=== PATIENT | female | born 1955 | race Caucasian/White ===

== ENCOUNTER 2016-06-13 01:47 | Emergency (ER) | payer OTHER ==
[~2016-06-13] VITALS: Ht 165.1 cm; Wt 77.1 kg
[~2016-06-13 01:47] MED LIST: ALBUTEROL0.09 MG/A1 INH; ALBUTEROL2.5 MG/3 M INH/SOL; AUGMENTIN 875 M1 TAB PO; Nebulizer machine; PREDNISONE20 M1 PO; PREDNISONE50 MG PO
--- NOTE | 2016-06-13 01:54 | ED DYSPNEA/ASTHMA COMPLAINT ---
History of Present Illness General Chief Complaint: Dyspnea (COPD, CHF, Other) Stated Complaint: DIFF BREATHING Source: patient Exam Limitations: no limitations Vital Signs & Intake/Output Vital Signs & Intake/Output Vital Signs Date Time Temp Pulse Resp B/P Pulse O2 O2 Flow FiO2 Ox Delivery Rate 06/13 0326 97.6 103 20 150/74 97 Room Air 06/13 0155 97.4 114 24 180/90 97 Room Air Allergies Coded Allergies: NO KNOWN ALLERGIES (04/17/15) Reconcile Medications Albuterol Sulfate 2.5 MG/3 ML VIAL.NEB 1 Vial INH/JUDY Q4P PRN wheezing Albuterol Sulfate 1.25 MG/3 ML VIAL.NEB 1 Vial INH/JUDY Q4-6 PRN WHEEZE Albuterol Sulfate (Ventolin Hfa) 90 MCG HFA.AER.AD 2 PUF INH Q4-6 PRN PRN WHEEZE AMOXICILLIN/POTASSIUM CLAV (Augmentin 875-125 Tablet) 875 MG/125 MG TAB 1 TAB PO BID BRONCHITIS Methylprednisolone. (Medrol) 4 MG TAB.DS.PK 1 DP PO AD WHEEZING/BRONCHITIS 6 on day 1 then reduce by one tablet daily until gone [Nebulizer machine] Prednisone 50 MG TAB 1 TAB PO QDAY ASTHMATIC BRONCHITIS Prednisone 20 MG TABLET 1 TAB PO BID wheezing Promethazine HCl/Codeine (Promethazine-Codeine Syrup) 6.25 MG-10 MG/5 ML SYRUP 5-10 ML PO Q4-6 PRN COUGH [id number] CC'S... [id number] Triage Nurses Notes Reviewed? yes Onset: Gradual Duration: day(s):, waxing and waning Timing: recent history Severity: moderate Activities at Onset: none Prior Episodes/Possible Cause: occasional episodes Associated Symptoms: cough, wheezing HPI: 61 yo woman presents with cough, productive of phlegm, wheezing for the past several days. She was seen previously at an urgent care center, was started on augmentin, had a cxr which was reportedly negative. She presnets stating that she continues to have cough and wheezing, and now slightly productive of sputum. She is otherwise well. Past History Travel History Traveled to [place] past 21 day No Medical History Any Pertinent Medical History? see below for history Neurological: NONE EENT: NONE Cardiovascular: hypertension Respiratory: NONE Gastrointestinal: NONE Hepatic: NONE Renal: NONE Musculoskeletal: NONE Psychiatric: NONE Endocrine: diabetes Blood Disorders: NONE Cancer(s): leukemia RELIGIOUS EDUCATION TEACHER/Reproductive: NONE Surgical History Surgical History: N Psychosocial History What is your primary language Arabic Family History Hx Contributory? No Review of Systems Review of Systems Constitutional: Reports: no symptoms. EENTM: Reports: no symptoms. Respiratory: Reports: no symptoms. Cardiovascular: Reports: no symptoms. GI: Reports: no symptoms. Genitourinary: Reports: no symptoms. Musculoskeletal: Reports: no symptoms. Skin: Reports: no symptoms. Neurological/Psychological: Reports: no symptoms. Hematologic/Endocrine: Reports: no symptoms. Immunologic/Allergic: Reports: no symptoms. All Other Systems: Reviewed and Negative Physical Exam Physical Exam General Appearance: well developed/nourished, mild distress Head: atraumatic, normal appearance Eyes: Bilateral: normal appearance. Ears, Nose, Throat: normal pharynx, normal ENT inspection Neck: normal inspection, supple, full range of motion Respiratory: rhonchi, wheezing Cardiovascular: regular rate/rhythm Gastrointestinal: normal bowel sounds, soft, non-tender, no organomegaly Extremities: normal inspection, normal capillary refill Neurologic/Psych: no motor/sensory deficits, awake, alert, oriented x 3 Skin: intact, normal color, warm/dry Core Measures ACS in differential dx? No Severe Sepsis Present: No Septic Shock Present: No Progress Differential Diagnosis: asthma, AMI, bronchitis, CHF, COPD, pneumonia Plan of Care: duo neb, steroids given... Diagnostic Imaging: Viewed by Me: Radiology Read. Discussed w/RAD: Radiology Read. CXR Impression: bronchial wall thickening. Initial ED EKG: none Comments: PATIENT: HIEN SANTOS PRESENT AGE: 61 PATIENT ACCOUNT NO: [id number] : 54 LOCATION: [facility] ORDERING PHYSICIAN: SAKINA CISSE MD SERVICE DATE: 06/09/16 EXAM TYPE: RAD - X[facility]-CHEST XRAY, PA AND LATERAL EXAMINATION: XR CHEST CLINICAL INFORMATION: Cough. Shortness of breath. COMPARISON: 12/30/2015 TECHNIQUE: 2 views of the chest were obtained. FINDINGS: The lungs are well expanded. Bronchial wall thickening noted. There is no focal consolidation, edema, or effusion. No pneumothorax. The cardiomediastinal silhouette is within normal limits. No acute osseous abnormality. IMPRESSION: No dense consolidation. Bronchial wall thickening can be seen with a small airways process such as asthma or atypical/viral infection. DICTATED BY: ADAM HUDDLESTON MD DATE/TIME DICTATED:06/10/161428 COMPLIANCE INTERN:JOSE J DATE/TIME TRANSCRIBED:06/10/161428 CONFIDENTIAL, DO NOT COPY WITHOUT APPROPRIATE AUTHORIZATION. <Electronically signed in Other Vendor System> SIGNED BY: ADAM HUDDLESTON MD 06/10 143 Departure Departure Disposition: HOME OR SELF CARE Condition: Stable Clinical Impression Primary Impression: Bronchitis Referrals: OTTO SANCHEZ,ADEBAYO Pelletier (PCP/Family) Departure Forms: Customer Survey General Discharge Information Prescriptions: Current Visit Scripts Methylprednisolone. (Medrol) 1 DP PO AD #1 DP 6 on day 1 then reduce by one tablet daily until gone Albuterol Sulfate 1 Vial INH/JUDY Q4P PRN wheezing #50 Vial Ref 5 Albuterol Sulfate 1 Vial INH/JUDY Q4-6 PRN WHEEZE #1 BOX Ref 1 Albuterol Sulfate (Ventolin Hfa) 2 PUF INH Q4-6 PRN PRN WHEEZE #1 INHAL Ref 1 Promethazine HCl/Codeine (Promethazine-Codeine Syrup) 5-10 ML PO Q4-6 PRN COUGH #120 ML [place] CC'S... [id number] Comments pt feeling better after duo neb. She declines repeat cxr. Will intensify her regimen with medrol dose pack. Close follow up encouraged. Critical Care Note Critical Care Note Critical Care Time: non-applicable
[2016-06-13] MEDS ORDERED: MEDROL4 M2 PO (02:54)
[2016-06-13] MEDS ORDERED: ALBUTEROL1.25 MG/1 INH/SOL (02:56)
[2016-06-13] MEDS ORDERED: ALBUTEROL2.5 MG/3 M INH/SOL (02:56)
[2016-06-13] MEDS ORDERED: VENTOLIN HFA18 GM INH (02:56)
[2016-06-13] MEDS ORDERED: PROMETHAZINE-C118 ML PO (03:10)
[2016-06-13 03:26] VITALS: BP 150/74
== END 2016-06-13 03:27 ==
LOC: ERH 01:47
DX: J40 Bronchitis, not specified as acute or chronic (principal)
CPT/HCPCS: 1263; J1100

== ENCOUNTER 2016-06-15 10:03 | Inpatient (IN) | payer OTHER ==
[~2016-06-15] VITALS: Ht 165.1 cm; Wt 77.1 kg
[~2016-06-15 10:03] MED LIST changes: +ALBUTEROL1.25 MG/1 INH/SOL; +MEDROL4 M2 PO; +PROMETHAZINE-C118 ML PO; +VENTOLIN HFA18 GM INH
--- NOTE | 2016-06-15 10:09 | NUR ---
SEEN MONDAY FOR COUGH/SOB, STARTED ON PREDNISONE , PT STATES THAT SHE WAS SEEN THE PREVIOUS MONDAY AT [facility]ALK [facility] AND STARTED ON ABT FOR SINUS INFECTION.HAD OUT PT CXR ON MONDAY THAT DR CISSE ORDERED. PT STATES THAT SHE STILL DOES NOT FEEL BETTER, O2 SAT 97-98 % AT TRIAGE, AFEBRILE. USING INHALER WITH NO RELIEF
--- NOTE | 2016-06-15 10:58 | ED DYSPNEA/ASTHMA COMPLAINT ---
History of Present Illness General Chief Complaint: Upper Respiratory Sx/Fever Stated Complaint: SOB, SEEN MON FOR BRONCHITIS Source: patient, old records Exam Limitations: no limitations Vital Signs & Intake/Output Vital Signs & Intake/Output Vital Signs Date Time Temp Pulse Resp B/P Pulse O2 O2 Flow FiO2 Ox Delivery Rate 06/16 1416 98.1 86 20 130/60 96 Room Air 06/16 0956 120/78 06/16 0954 Room Air Room Air 06/16 0954 94 Room Air Room Air 06/16 0800 Room Air 06/16 0630 98.1 102 20 126/84 96 Nasal 2.0L Cannula 06/16 0000 Nasal 1.5L Cannula 06/15 2246 98.8 104 20 144/80 96 Room Air 06/15 2024 98.4 88 20 150/90 95 Room Air ED Intake and Output 06/16 0000 06/15 1200 Intake Total 480 Output Total Balance 480 Intake, Oral 480 Patient 170 lb 170 lb Weight Reconcile Medications Albuterol Sulfate 2.5 MG/3 ML VIAL.NEB 1 Vial INH/JUDY Q4P PRN wheezing Albuterol Sulfate (Ventolin Hfa) 90 MCG HFA.AER.AD 2 PUF INH Q4-6 PRN PRN WHEEZE Amoxicillin/Clavulanate Potass (Amox-Clav 875-125 MG Tablet) 875 MG-125 MG TABLET 1 TAB PO BID ANTIBIOTIC, INFECTION (Reported) Insulin NPL/Insulin Lispro (Humalog Mix 75-25 Kwikpen) (Unknown Strength) INSULN.PEN (Unknown Dose) SC BID DIABETES (Reported) Metformin HCl (Metformin HCl ER) 500 MG TAB.ER.24H 1 TAB PO BID DM (Reported) Simvastatin (Simvastatin*) 20 MG TABLET 1 TAB PO QPM CHOLESTEROL (Reported) Valsartan (Diovan) 80 MG TABLET 1 TAB PO DAILY HEART (Reported) Triage Note: SEEN MONDAY FOR COUGH/SOB, STARTED ON PREDNISONE , PT STATES THAT SHE WAS SEEN THE PREVIOUS MONDAY AT [facility]ALK [facility] AND STARTED ON ABT FOR SINUS INFECTION.HAD OUT PT CXR ON MONDAY THAT DR CISSE ORDERED. PT STATES THAT SHE STILL DOES NOT FEEL BETTER, O2 SAT 97-98 % AT TRIAGE, AFEBRILE. USING INHALER WITH NO RELIEF Triage Nurses Notes Reviewed? yes Onset: Gradual Duration: week(s): (1), constant Timing: recent history Severity: moderate Activities at Onset: none Prior Episodes/Possible Cause: occasional episodes Modifying Factors: Worsens With: other (cough). Associated Symptoms: cough HPI: 61-year-old female history of asthma hypertension diabetes presents to emergency room complaining of persistent shortness of breath nonproductive cough that she has had for the past 1 week. The patient states she was initially seen by her Hand Tire Trimmer and had an outpatient x-ray performed that showed bronchitis. She has been on antibiotics however states the symptoms have been worsening. She was seen in this ER 2 days ago for the same embers prescribed albuterol inhalers , steroids and nebulizers which she is using without improvement stating her symptoms persist. She denies fevers however reports chills. No chest pain or pain with inspiration no hemoptysis or sputum production. She quit smoking several years ago. No leg swelling abdominal pain nausea vomiting or diarrhea. No sick contacts recent travel. (MICHELLE MOJICA) Allergies Coded Allergies: losartan (Intermediate, PATIENT COULD NOT TOLERATE COZAAR SWITCHED TO DIOVAN 05/03) (VALENTINA MARR MD) Past History Travel History Traveled to [place] past 21 day No Medical History Any Pertinent Medical History? see below for history Neurological: NONE EENT: NONE Cardiovascular: hypertension Respiratory: NONE Gastrointestinal: NONE Hepatic: NONE Renal: NONE Musculoskeletal: NONE Psychiatric: NONE Endocrine: diabetes Blood Disorders: NONE Cancer(s): leukemia PAINT PREPPER/Reproductive: NONE Surgical History Surgical History: N Psychosocial History What is your primary language Turkish Tobacco Use: Never used ETOH Use: denies use Illicit Drug Use: denies illicit drug use Family History Hx Contributory? No (MICHELLE MOJICA) Review of Systems Review of Systems Constitutional: Reports: see HPI. All Other Systems: Reviewed and Negative Comments Review of systems: See HPI, All other systems negative. Constitutional, no chills no fever, no malaise HEENT: No visual changes no sore throat no congestion, Cardiovascular: No chest pain , no palpitation , Skin, no rashes, no change in skin Respiratory: dyspnea cough no sputum no hemoptysis GI: No nausea no vomiting, no diarrhea, : No dysuria No hematuria, no frequency Muscle skeletal: No joint pain, no back pain, no neck pain, Neurologic: No numbness no headache Psych: No stress ,. Heme/endocrine: No bruising no bleeding Immunology: No lymphadenopathy (MICHELLE MOJICA) Physical Exam Physical Exam General Appearance: well developed/nourished, alert, awake Respiratory: respiratory distress Comments: Well-developed well-nourished person in no acute distress Head/Face: Atraumatic, no maxillary/frontal sinus tenderness, no facial swelling Eyes: PERRL, EOMI, no conjunctival injection. No nystagmus Ear:External auditory canal and Tympanic membranes clear, no erythema, no FB. Nose: atraumatic.Normal inspection: No bleeding, no septal hematoma Throat: Moist mucous membranes.Pharynx normal. No pharyngeal erythema/exudate seen. No stridor/drooling or assymetry. No swelling or edema. Neck: Supple, no lymphadenopathy, FROM Back: Nontender, no CVA tenderness. Full range of motion Cardiovascular: Regular rate and rhythms no murmurs rubs or gallops, normal JVP Respiratory:mild respiratory distress. Patient speaking in full complete sentences. Breath sounds clear to auscultation bilaterally: NO W/R/R Abdomen: Soft, nontender nondistended, no appreciable organomegaly. Normal bowel sounds. No rebound/guarding, Extremity: No edema, full range of motion of extremities Neuro: Alert oriented x3, motor sensory normal. There were no obvious focal neurologic abnormalities. Skin: No appreciable rash on exposed skin, skin is warm and dry. Psych: Mood and affect is normal, memory and judgment is normal. Core Measures ACS in differential dx? No Severe Sepsis Present: No Septic Shock Present: No (MICHELLE MOJICA) Progress Differential Diagnosis: asthma, AMI, bronchitis, costochondritis, CHF, COPD, musculoskeletal pain, pericarditis, pulmonary embolism, pneumonia, pneumothorax, unstable angina Plan of Care: Orders Procedure Date/time Status CBC WITHOUT DIFFERENTIAL 06/17 0600 Active Consistent Carbohydrate 2 06/16 D Active RT: Reevaluation 06/16 0732 Active RT: Evaluation 06/17 731 Active THERAPIST ORDERS 06/16 UNK Complete Anticipated Discharge 06/16 UNK Active Current Medications Sig/Hilda Start time Last Medication Dose Stop Time Status Admin Albuterol Sulfate 3 ML Q4P PRN 06/15 1445 AC (Proventil) Ketorolac 15 MG Q6P PRN 06/15 1445 AC Tromethamine 06/20 1444 (Toradol) Morphine Sulfate 2 MG Q6PRN PRN 06/15 1445 AC (Morphine) Laboratory Tests 06/16/16 0705: Anion Gap 10, Estimated GFR > 60, BUN/Creatinine Ratio 26.3 H, CBC w Diff NO MAN DIFF REQ, RBC 4.00 L, MCV 87.0, MCH 29.5, RDW 15.8 H, MPV 8.8, Gran % 76.6 H, Lymphocytes % 17.2 L, Monocytes % 5.9, Eosinophils % 0.1, Basophils % 0.2, Absolute Granulocytes 10.7 H, Absolute Lymphocytes 2.4, Absolute Monocytes 0.8 H, Absolute Eosinophils 0, Absolute Basophils 0, PUBS MCHC 33.9 Labs ordered old records reviewed DuoNeb ordered soluMedrol [address] marr at bedside to eval pt agrees iwthplan Discussed with the patient at length her x-ray findings lab results given she has failed outpatient therapy I believe premature discharge in medically harmful which they're in agreement with, case was discussed with Dr. cheng will admit (BARBARA HERNANDEZ,MICHELLE) Diagnostic Imaging: Viewed by Me: Radiology Read. Discussed w/RAD: Radiology Read. Radiology Impression: PATIENT: HIEN SANTOS PRESENT AGE: 61 PATIENT ACCOUNT NO: [id number] : 54 LOCATION: [facility] ORDERING PHYSICIAN: MICHELLE HERNANDEZ SERVICE DATE: 06/15/16 EXAM TYPE: RAD - X[facility]- CHEST XRAY, PA AND LATERAL EXAMINATION: XR CHEST, 2 VIEWS CLINICAL INFORMATION: Cough. Dyspnea. COMPARISON: 06/09/2016 TECHNIQUE: PA and lateral views of the chest were obtained. FINDINGS: Bronchial wall thickening is again noted. There are patchy foci of airspace disease in the left perihilar region which is slightly more pronounced as compared to prior. No pneumothorax or pleural effusion. Cardiac and mediastinal contours are normal. Pulmonary vasculature is unremarkable. Trachea is midline. Minimal degenerative spondylosis in the thoracic spine. IMPRESSION: Bronchial wall thickening, similar to prior. This could be due to small airways process such as asthma or an atypical/viral infection. Subtle left perihilar opacities are increased from prior and may correspond to early developing pneumonia. DICTATED BY: MIGUEL PEÑA MD DATE/ TIME DICTATED:06/15/161150 SAP BW DEVELOPER:JOSE J DATE/TIME TRANSCRIBED: 06/15/161150 CONFIDENTIAL, DO NOT COPY WITHOUT APPROPRIATE AUTHORIZATION. < Electronically signed in Other Vendor System> SIGNED BY: MIGUEL PEÑA MD 06/15/161156 Initial ED EKG: none (MICHELLE MOJICA) Departure Departure Time of Disposition: 1221 Disposition: STILL A PATIENT Condition: Stable Clinical Impression Primary Impression: PNA (pneumonia) Secondary Impressions: Asthma exacerbation Referrals: ADEBAYO MENJIVAR MD (PCP/Family) Departure Forms: Customer Survey General Discharge Information Admission Note Spoke With: JUDY SANCHEZ,BRIDGETTE Documentation of Exam: Documentation of any treatments & extenuating circumstances including Concerns Regarding Discharge (functional status, medication knowledge or non-compliance, living conditions, etc.) that warrant an admission rather than observation: Patient has failed outpatient therapy with by mouth antibiotics and steroids, she's been using her breathing treatments at home without improvement, patient became hypoxic here in the emergency room upon ambulation, she is failed outpatient therapy premature discharge would BE medically harmful. (MICHELLE MOJICA) PA/PHOTO TECHNICIAN Co-Sign Statement Statement: ED Attending supervision documentation- x I saw and evaluated the patient. I have also reviewed all the pertinent lab results and diagnostic results. I agree with the findings and the plan of care as documented in the PA's/PHOTO TECHNICIAN's documentation. [] I have reviewed the ED Record and agree with the PA's/PHOTO TECHNICIAN's documentation. [] Additions or exceptions (if any) to the PAs/PHOTO TECHNICIAN's note and plan are summarized below: [] (JUSTA SANCHEZ,VALENTINA) Critical Care Note Critical Care Note Critical Care Time: non-applicable (MICHELLE MOJICA) infection. Subtle left perihilar opacities are increased from prior and may correspond to early developing pneumonia. DICTATED BY: MIGUEL PEÑA MD DATE/ TIME DICTATED:06/15/161150 SAP BW DEVELOPER:JOSE J DATE/TIME TRANSCRIBED: 06/15/161150 CONFIDENTIAL, DO NOT COPY WITHOUT APPROPRIATE AUTHORIZATION. < Electronically signed in Other Vendor System> SIGNED BY: MIGUEL PEÑA MD 06/15/161156 Initial ED EKG: none Departure Departure Time of Disposition: 1221 Disposition: STILL A PATIENT Condition: Stable Clinical Impression Primary Impression: PNA (pneumonia) Secondary Impressions: Asthma exacerbation Referrals: ADEBAYO MENJIVAR MD (PCP/Family) Departure Forms: Customer Survey General Discharge Information Admission Note Spoke With: JUDY SANCHEZ,BRIDGETTE Documentation of Exam: Documentation of any treatments & extenuating circumstances including Concerns Regarding Discharge (functional status, medication knowledge or non-compliance, living conditions, etc.) that warrant an admission rather than observation: Patient has failed outpatient therapy with by mouth antibiotics and steroids, she's been using her breathing treatments at home without improvement, patient became hypoxic here in the emergency room upon ambulation, she is failed outpatient therapy premature discharge would BE medically harmful. Critical Care Note Critical Care Note Critical Care Time: non-applicable
[2016-06-15] MEDS ORDERED: HUMALOG MI100 UNIT/3 SC (11:12)
[2016-06-15] MEDS ORDERED: AMOX-CLAV 875-1 EACH PO (11:12)
[2016-06-15] MEDS ORDERED: METFORMIN HCL500 M4 PO (11:13)
[2016-06-15] MEDS ORDERED: DIOVAN80 M1 PO (11:13)
[2016-06-15] MEDS ORDERED: SIMVASTATIN20 M2 PO (11:13)
--- NOTE | 2016-06-15 11:23 | NUR ---
PT AMB TO AND FROM RAD.
--- NOTE | 2016-06-15 11:27 | NUR ---
IV EST, PT MEDICATED WITH SOLU MEDROL PER EMAR. BLOOD DRAWN AND SENT TO LAB-[facility].
--- NOTE | 2016-06-15 11:28 | NUR ---
RAD AT BEDSIDE FOR PT EVAL.
--- NOTE | 2016-06-15 11:30 | NUR ---
RESP AT BEDSIDE FOR DUONEB.
[2016-06-15 11:46] LABS: ABSOLUTE BASOPHIL COUNT 0 /CUMM (0.0-0.2); ABSOLUTE EOSINOPHIL COUNT 0 /CUMM (0.0-0.7); ABSOLUTE GRANULOCYTE CT 12.2 /CUMM (1.4-6.5); ABSOLUTE LYMPH COUNT 1.5 /CUMM (1.2-3.4); ABSOLUTE MONOCYTE COUNT 0.6 /CUMM (0.10-0.60); BASOPHIL % 0.1 % (0.0-2.0); EOSINOPHIL % 0 % (0-5); GRANULOCYTE % 85.3 % (42.2-75.2); HEMATOCRIT 36.6 % (37-47); MEAN CORPUSCULAR HGB 28.5 PG (27.0-31.0); MEAN CORPUSCULAR HGB CONC 33.2 G/DL (33.0-37.0); MEAN CORPUSCULAR VOLUME 86.1 FL (81.0-99.0); MEAN PLATELET VOLUME 8.5 FL (7.4-10.4); PLATELET COUNT 288 /CUMM (130-400); RBC DISTRIBUTION WIDTH 15.9 % (11.5-14.5); RED BLOOD CELL CT 4.25 /CUMM (4.20-5.40); WHITE BLOOD CELL COUNT 14.3 /CUMM (4.8-10.8)
--- NOTE | 2016-06-15 11:57 | RADIOLOGY REPORT ---
EXAMINATION: XR CHEST, 2 VIEWS CLINICAL INFORMATION: Cough. Dyspnea. COMPARISON: 06/09/2016 TECHNIQUE: PA and lateral views of the chest were obtained. FINDINGS: Bronchial wall thickening is again noted. There are patchy foci of airspace disease in the left perihilar region which is slightly more pronounced as compared to prior. No pneumothorax or pleural effusion. Cardiac and mediastinal contours are normal. Pulmonary vasculature is unremarkable. Trachea is midline. Minimal degenerative spondylosis in the thoracic spine. IMPRESSION: Bronchial wall thickening, similar to prior. This could be due to small airways process such as asthma or an atypical/viral infection. Subtle left perihilar opacities are increased from prior and may correspond to early developing pneumonia.
--- NOTE | 2016-06-15 12:03 | NUR ---
AMBULATORY O2SAT DROPPED TO 88% WITH HR 120'S, PT BECAME SOB WITH AMBULATION. DAVID JIMENEZ MADE AWARE.
--- NOTE | 2016-06-15 12:05 | NUR ---
MD JUSTA AT BEDSIDE FOR PT EVAL.
--- NOTE | 2016-06-15 13:01 | NUR ---
PT MEDICATED WITH ROCEPHIN, AND ZITHROMAX INFUSING PER EMAR.
--- NOTE | 2016-06-15 15:16 | History & Physical ---
ROMELIA SANCHEZ,SAMPSON 06/15/16 1453: General Information and HPI MD Statement: I have seen and personally examined HIEN SANTOS and documented this H&P. The patient is a 61 year old F who presented with a patient stated chief complaint of [cough]. Source of Information: patient, family Exam Limitations: no limitations History of Present Illness: 61-year-old female with a past medical history of asthma, HTN, diabetes, hyperlipidemia, AML presents to the hospital complaining of persistent shortness of breath along with cough with minimal sputum production for the past week. States that symptoms started on , she went to walk-in clinic, was seen by an outpatient uppers edge burnisher prescribed Augmentin however symptoms have not improved. She was seen in the ER 2 days ago and was given Proventil inhaler, nebulizers, and steroids and discharged. She lives at home alone, no sick contacts. 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 Denies chest pain, palpitations, lightheadedness, nausea, vomiting, diarrhea. Remote history of smoking, quit 20 years ago, after smoking for 25 years pack a day. 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 Allergies/Medications Home Med list Albuterol Sulfate 2.5 MG/3 ML VIAL.NEB 1 Vial INH/JUDY Q4P PRN wheezing Albuterol Sulfate (Ventolin Hfa) 90 MCG HFA.AER.AD 2 PUF INH Q4-6 PRN PRN WHEEZE Amoxicillin/Clavulanate Potass (Amox-Clav 875-125 MG Tablet) 875 MG-125 MG TABLET 1 TAB PO BID ANTIBIOTIC, INFECTION (Reported) Insulin NPL/Insulin Lispro (Humalog Mix 75-25 Kwikpen) (Unknown Strength) INSULN.PEN (Unknown Dose) SC BID DIABETES (Reported) Metformin HCl (Metformin HCl ER) 500 MG TAB.ER.24H 1 TAB PO BID DM (Reported) Simvastatin (Simvastatin*) 20 MG TABLET 1 TAB PO QPM CHOLESTEROL (Reported) Valsartan (Diovan) 80 MG TABLET 1 TAB PO DAILY HEART (Reported) Compliance With Home Meds: GOOD Past History Travel History Traveled to [place] past 21 day No Medical History Neurological: NONE EENT: NONE Cardiovascular: hypertension Respiratory: NONE Gastrointestinal: NONE Hepatic: NONE Renal: NONE Musculoskeletal: NONE Psychiatric: NONE Endocrine: diabetes Blood Disorders: NONE Cancer(s): leukemia BUCKET HOOKER/Reproductive: NONE Surgical History Surgical History: N Past Family/Social History Family History Relations & Conditions if any MOTHER (Diabetes,Colon cancer,Lymphoma). FATHER (Dementia). Psychosocial History Where do you live? Home Who Do You Live With? alone Services at Home: None Primary Language: Sami Smoking Status: Former Smoker ETOH Use: denies use Illicit Drug Use: denies illicit drug use Functional Ability ADLs Independent: dressing, eating, toileting, bathing. Ambulation: independent IADLs Independent: shopping, housework, finances, food prep, telephone, transportation , medication admin. Employment History Employment Employed Profession/Employer hairdresser Review of Systems Review of Systems Constitutional: Reports: chills, fever, weakness. EENTM: Reports: no symptoms. Cardiovascular: Denies: chest pain, orthopena, palpitations, peripheral edema, syncope. Respiratory: Reports: cough, short of breath, sputum production. Denies: wheezing. GI: Denies: abdominal pain, bloating, constipation, diarrhea, nausea, vomiting. Genitourinary: Denies: discharge, frequency, hematuria, hesitation, pain. Musculoskeletal: Denies: back pain. Skin: Reports: no symptoms. Neurological/Psychological: Reports: no symptoms. Hematologic/Endocrine: Reports: no symptoms. All Other Systems: Reviewed and Negative Exam & Diagnostic Data Last 24 Hrs of Vital Signs/I&O Vital Signs Date Time Temp Pulse Resp B/P Pulse O2 O2 Flow FiO2 Ox Delivery Rate 06/15 1307 98.6 116 18 144/75 98 Nasal 1.5L Cannula 06/15 1127 97 Room Air 06/15 1126 96 06/15 1005 97.4 102 18 154/84 98 Room Air Intake & Output 06/15 1600 06/15 0800 06/15 0000 Intake Total Output Total Balance Patient 170 lb Weight Physical Exam General Appearance Alert, Oriented X3, Cooperative, No Acute Distress Skin No Rashes, No Breakdown HEENT Atraumatic, PERRLA, EOMI, Mucous Membr. moist/pink Neck Supple, No JVD Lymphatic Cervical nl Cardiovascular Regular Rate, Normal S1, Normal S2, No Murmurs Lungs Clear to Auscultation, Normal Air Movement Abdomen Normal Bowel Sounds, Soft, No Tenderness Extremities No Clubbing, No Cyanosis, No Edema Vascular Normal Pulses Diagnostic Data EKG Results Pending CXR Results Bronchial wall thickening, similar to prior. This could be due to small airways process such as asthma or an atypical/viral infection. Subtle left perihilar opacities are increased from prior and may correspond to early developing pneumonia. Assessment/Plan Assessment: 61-year-old female with a past medical history of asthma, HTN, diabetes, hyperlipidemia, AML presents to the hospital complaining fevers, chills and shortness of breath along with cough and minimal sputum production for the past week. She failed outpatient treatment for pneumonia, and apparently desaturating the ER while ambulating to the restroom. Admit to general medicine floor She's been started on ceftriaxone and azithromycin will continue same Maintain oxygen saturation greater than 92%, titrate as needed TRC evaluation, continue nebulizers, inhalers She received steroids in the ER, will continue 40mg IV Solu-Medrol daily Monitor sugars closely while taking steroids, with Accu-Cheks NovoLog sliding scale ordered Monitor blood pressure, continue LILLY inhibitor Continue home dose of statin DVT prophylaxis Lovenox Heart healthy diet Full code As Ranked By This Provider Problem List: 1. PNA (pneumonia) 2. Diabetes 3. Hypertension Core Measures/Miscellaneous Acute Coronary Syndrome ACS Diagnosis: No Cerebrovascular Accident CVA/TIA Diagnosis: No Congestive Heart Failure CHF Diagnosis: No Venous Thromboembolism VTE Risk Factors: Age > 40 VTE Prophylaxis Ordered Inpt: Pharm- Lovenox No Mech VTE prophylaxis d/t: No contraindications No VTE Pharm Prophylaxis d/t: No contraindications VTE Diagnosis: No VTE Type: NONE VTE Confirmed by (Test): NONE Severe Sepsis Severe Sepsis Present: No Septic Shock Septic Shock Present: No Miscellaneous Documentation Attending Case Discussed With: TOYA JOHNSON MD Primary Care Physician: ADEBAYO MENJIVAR MD Patient sees these Specialists Pulmonology Endocrinology Level of Patient Care: General Medicine TOYA JOHNSON MD 06/15/16 1520: General Information and HPI Allergies/Medications Allergies: Coded Allergies: losartan (Intermediate, PATIENT COULD NOT TOLERATE COZAAR SWITCHED TO DIOVAN 05/03) Barby SANCHEZ Review Statement Attending Statement Attending Statement: examined this patient, discuss w/resident/PA/CUSTOMER SERVICE DRIVER, agreed w/resident/PA/CUSTOMER SERVICE DRIVER, discussed with family, reviewed EMR data (avail), discussed with nursing, reviewed images, amended to note Attending Assessment/Plan: The patient is a 61 yo female with h/o asthma, HTN, DM2, HL, and distant h/o AML ([id number]) who presented in the [place] ED with persistent cough and dyspnea. She had been seen in the ED 2 days prior for similar symptoms and was prescribed prednisone, MDI/aerosol. She was previously treated in a walk in clinic with Augmentin for a sinus infection. She had an OP CXR that showed bronchial wall thickening w/o infiltrate. She is a former smoker (not recent). The patient was given IV Ceftriaxone/Zithromax and Solumedrol 125 mg IV in the ED along with aerosol with some improvement in symptoms. Physical Exam: VS: T 98.0, P 116-102, R 18, BP 154/84-144/75, PO 98% 1.5 L (was in low 80's with ambulation in ED). HEENT: eyes- PERRLA, EOMI anant- moist mucosa w/o lesions Neck: no JVD, bruits, or adenopathy Chest: mild diffuse diminished breath sounds with mild wheeze on forced expiration, no rhonchi Cor: RRR, nl S1, S2 w/o murm Abd: BS+, soft, NT Ext: no edema, pulses 2+ Neuro: alert & oriented x 3, non-focal Labs/Tests- as above Impression/Plan: #Acute Hypoxic Respiratory Failure- based on low pulse ox in low 80's on ambulation in ED. Improved post aerosol/Medrol. Plan: Admit to medicine- monitor pulse ox and check with ambulation. #Asthmatic Bronchitis- no definite infiltrate on CXR. Symptoms are more suggestive of atypical infection as did not respond to po Augmentin. Plan: Continue IV Medrol, albuterol aerosol- antibiotics (Ceftriaxone/Zithromax) . #DM2- on Metformin and insulin at home. Expect to see higher glucose readings on Medrol/steroids. Plan: Will follow sugars and give sliding scale insulin. #Hyperlipidemia- on Simvastatin. Plan: Continue Simvastatin. #Essential Hypertension- BP came down with rest. Plan: Continue Valsartan (?Losartan in hospital).
--- NOTE | 2016-06-15 15:18 | Admission Certification ---
Admission Certification Certification Statement - As attending physician, I certify that at the time of - admission, based on clinical presentation, severity of - symptoms, need for further diagnostic testing and - therapeutic interventions, and risk of adverse outcomes - without in-hospital treatment, in my clinical assessment, - this patient requires an acute hospital stay for a minimum - of two nights or longer. I have also considered psychsocial - factors such as support system, advanced age, financial - issues, cognitive issues, and failed out-patient treatments, - past re-admission history, safety of patient, and lack of - compliance as applicable. Specific rationale supporting this admission is: The patient presents with dyspnea and an episode of acute hypoxic respiratory failure with ambulation in the ED. Bronchospasm/bronchitis- ? atypical infection. Needs IV Medrol/Antibiotics, oxygen support and monitoring. Pulmonary consult.
--- NOTE | 2016-06-15 15:56 | NUR ---
PT RESTING ON STRETCHER, VSS, AWAITING ADMISSION.
--- NOTE | 2016-06-15 16:00 | NUR ---
RESP AT BEDSIDE FOR TX.
--- NOTE | 2016-06-15 16:44 | NUR ---
PT ASSIGNED TO ROOM 223-2
--- NOTE | 2016-06-15 17:07 | NUR ---
REPORT GIVEN TO HERNAN FLOREZ TO [facility]. [facility] CALLED FOR TRANSPORTATION.
[2016-06-15 18:08] VITALS: BP 154/80
--- NOTE | 2016-06-15 18:45 | NUR ---
PATIENT ARRIVED ON FLOOR FROM ER AT 1800. PATIENT ALERT AND ORIENTED X 3. ADMISSION COMPLETE. BLOOD SUGAR > 500 AT 1800 AND > 500 AT 1824. STATE SUPERINTENDENT OF [employer] LARS Chau NOTIFIED. INSULIN SLIDING SCALE COVERAGE GIVEN ORDERED.
[2016-06-15 20:25] VITALS: BP 150/90
[2016-06-15 22:46] VITALS: BP 144/80
[2016-06-16 06:30] VITALS: BP 126/84
[2016-06-16 08:02] LABS: ABSOLUTE BASOPHIL COUNT 0 /CUMM (0.0-0.2); ABSOLUTE EOSINOPHIL COUNT 0 /CUMM (0.0-0.7); ABSOLUTE GRANULOCYTE CT 10.7 /CUMM (1.4-6.5); ABSOLUTE LYMPH COUNT 2.4 /CUMM (1.2-3.4); ABSOLUTE MONOCYTE COUNT 0.8 /CUMM (0.10-0.60); BASOPHIL % 0.2 % (0.0-2.0); EOSINOPHIL % 0.1 % (0-5); GRANULOCYTE % 76.6 % (42.2-75.2); HEMATOCRIT 34.8 % (37-47); MEAN CORPUSCULAR HGB 29.5 PG (27.0-31.0); MEAN CORPUSCULAR HGB CONC 33.9 G/DL (33.0-37.0); MEAN PLATELET VOLUME 8.8 FL (7.4-10.4); PLATELET COUNT 243 /CUMM (130-400); RBC DISTRIBUTION WIDTH 15.8 % (11.5-14.5)
--- NOTE | 2016-06-16 08:12 | PN- Housestaff ---
ROMELIA SANCHEZ,SAMPSON 06/16/16 0805: Subjective Follow-up For: Pneumonia Complaints: no complaints Subjective: Seen and examined at bedside. Doing well, no complaints. Review of Systems Constitutional: Reports: see HPI. Objective Last 24 Hrs of Vital Signs/I&O Vital Signs Date Time Temp Pulse Resp B/P Pulse O2 O2 Flow FiO2 Ox Delivery Rate 06/16 0630 98.1 102 20 126/84 96 Nasal 2.0L Cannula 06/16 0000 Nasal 1.5L Cannula 06/15 2246 98.8 104 20 144/80 96 Room Air 06/15 2025 98.4 88 20 150/90 95 Room Air 06/15 1808 98.3 118 24 154/80 98 Nasal 1.5L Cannula 06/15 1720 98.1 116 18 149/70 96 Nasal 1.5L Cannula 06/15 1617 94 06/15 1556 98.6 104 18 153/74 94 Room Air 06/15 1530 98.6 104 18 153/74 06/15 1307 98.6 116 18 144/75 98 Nasal 1.5L Cannula 06/15 1127 97 Room Air 06/15 1126 96 06/15 1005 97.4 102 18 154/84 98 Room Air Intake & Output 06/16 1600 06/16 0800 06/16 0000 Intake Total 480 480 Output Total Balance 480 480 Intake, Oral 480 480 Patient 170 lb Weight Physical Exam General Appearance: Alert, Oriented X3, Cooperative, No Acute Distress Skin: No Rashes, No Breakdown HEENT: Atraumatic, PERRLA, EOMI Neck: Supple, No JVD Lymphatic: Cervical nl Cardiovascular: Regular Rate, Normal S1, Normal S2, No Murmurs Lungs: Clear to Auscultation, Normal Air Movement Abdomen: Normal Bowel Sounds, Soft, No Tenderness Neurological: Normal Speech Extremities: No Edema, Normal Pulses Current Medications: Current Medications Sig/Hilda Start time Last Medication Dose Route Stop Time Status Admin Acetaminophen 650 MG Q6 06/15 1800 AC 06/16 PO 0601 Albuterol Sulfate 3 ML Q4P PRN 06/15 1445 AC INH Albuterol Sulfate 3 ML ONCE ONE 06/15 1115 DC 06/15 INH 06/15 1116 1125 Atorvastatin Calcium 10 MG 1700 06/15 1700 AC 06/15 PO 1911 Azithromycin 500 MG DAILY 06/16 1000 AC Dextrose/Water 250 ML IV Azithromycin 500 MG ONCE ONE 06/15 1215 DC 06/15 Dextrose/Water 250 ML IV 06/15 1314 1301 Ceftriaxone Sodium 1,000 MG DAILY 06/16 1000 AC IV Ceftriaxone Sodium 0 .STK-MED ONE 06/15 1232 DC .ROUTE Ceftriaxone Sodium 1,000 MG ONCE ONE 06/15 1230 DC 06/15 IV 06/15 1231 1301 Enoxaparin Sodium 40 MG DAILY 06/16 1000 AC SC Insulin Aspart 4 UNITS ONCE ONE 06/15 2230 DC 06/15 SC 06/15 2231 2232 Insulin Aspart 0 TIDAC 06/15 1700 AC 06/15 SC 1836 Ipratropium [place] 2.5 ML ONCE ONE 06/15 1515 DC 06/15 INH 06/15 1516 1600 Ipratropium [place] 2.5 ML ONCE ONE 06/15 1115 DC 06/15 INH 06/15 1116 1125 Ketorolac 15 MG Q6P PRN 06/15 1445 AC Tromethamine IV 06/20 1444 Losartan Potassium 50 MG DAILY 06/15 1442 DC PO Methylprednisolone 40 MG DAILY 06/16 1000 AC IV Methylprednisolone 0 .STK-MED ONE 06/15 1117 DC .ROUTE Methylprednisolone 125 MG ONCE ONE 06/15 1115 DC 06/15 IV 06/15 1116 1127 Morphine Sulfate 2 MG Q6PRN PRN 06/15 1445 AC IV Valsartan 80 MG DAILY 06/16 1000 AC PO Last 24 Hrs of Lab/Uriel Results Last 24 Hrs of Labs/Mics: Laboratory Tests 06/16/16 0705: Sodium Pending, Potassium Pending, Chloride Pending, Carbon Dioxide Pending, Anion Gap Pending, BUN Pending, Creatinine Pending, BUN/Creatinine Ratio Pending , CBC w Diff NO MAN DIFF REQ, RBC 4.00 L, MCV 87.0, MCH 29.5, RDW 15.8 H, MPV 8.8, Gran % 76.6 H, Lymphocytes % 17.2 L, Monocytes % 5.9, Eosinophils % 0.1, Basophils % 0.2, Absolute Granulocytes 10.7 H, Absolute Lymphocytes 2.4, Absolute Monocytes 0.8 H, Absolute Eosinophils 0, Absolute Basophils 0, PUBS MCHC 33.9 06/15/16 1128: Anion Gap 13, Estimated GFR > 60, BUN/Creatinine Ratio 28.6 H, Glucose 286 H, Calcium 9.8, Total Bilirubin 0.8, AST 30, ALT 36, Alkaline Phosphatase 77, Troponin I 0.06, Zpx-Y-Waisfptrldx Pept 2870 H, Total Protein 7.5, Albumin 4.3, Globulin 3.2, Albumin/Globulin Ratio 1.3, CBC w Diff MAN DIFF ORDERED, RBC 4.25, MCV 86.1, MCH 28.5, RDW 15.9 H, MPV 8.5, Gran % 85.3 H, Lymphocytes % 10.2 L, Monocytes % 4.4, Eosinophils % 0, Basophils % 0.1, Absolute Granulocytes 12.2 H , Absolute Lymphocytes 1.5, Absolute Monocytes 0.6, Absolute Eosinophils 0, Absolute Basophils 0, Platelet Estimate VERIFIED BY SMEAR, Anisocytosis 1+, PUBS MCHC 33.2 Microbiology 06/15 1500 LOWER RESP: Respiratory Culture - COLB 06/15 1500 LOWER RESP: Gram Stain - COLB 06/15 1239 BLOOD: Blood Culture - RECD 06/15 1226 BLOOD: Blood Culture - RECD 06/15 1209 BLOOD: Blood Culture - CAN Cancelled: Cancelled via OE: DC Assessment/Plan Assessment: 61-year-old female with a past medical history of asthma, HTN, diabetes, hyperlipidemia, AML presents to the hospital complaining fevers, chills and shortness of breath along with cough and minimal sputum production for the past week. She failed outpatient treatment for pneumonia, and apparently desaturating the ER while ambulating to the restroom. Continue ceftriaxone and azithromycin Maintain oxygen saturation greater than 92%, titrate down TRC evaluation, continue nebulizers, inhalers continue 40mg IV Solu-Medrol daily Monitor sugars closely while taking steroids, with Accu-Cheks 193, 500, 401, 268 NovoLog sliding scale ordered, wll add her home medication Monitor blood pressure, continue LILLY inhibitor Continue home dose of statin DVT prophylaxis Lovenox Heart healthy diet Full code Problem List: 1. Diabetes 2. Hypertension 3. PNA (pneumonia) Pain Ratin Pain Location: no pain Pain Goal: Remain pain free Pain Plan: continue pain management Tomorrow's Labs & Rationales: TOYA MIRANDA MD 06/16/16 1503: Attending MD Review Statement Attending Statement Attending MD Statement: examined this patient, discuss w/resident/PA/NEWSPAPER CARRIERS SUPERVISOR, agreed w/resident/PA/NEWSPAPER CARRIERS SUPERVISOR, reviewed EMR data (avail), discussed with nursing, discussed with case mgmt, amended to note Attending Assessment/Plan: The patient was seen and discussed with house staff. Agree with the plan of care as outlined.
[2016-06-16 14:16] VITALS: BP 130/60
[2016-06-16 23:26] VITALS: BP 138/80
[2016-06-17 06:00] VITALS: BP 146/70
--- NOTE | 2016-06-17 08:01 | PN- Housestaff ---
ROMELIA SANCHEZ,SAMPSON 06/17/16 0756: Subjective Follow-up For: Pneumonia Diabetes Complaints: no complaints Subjective: Feels well. Slept well overnight after receiving melatonin. No complaints, wishes to go home today. Review of Systems Constitutional: Reports: see HPI. Objective Last 24 Hrs of Vital Signs/I&O Vital Signs Date Time Temp Pulse Resp B/P Pulse O2 O2 Flow FiO2 Ox Delivery Rate 06/17 06 98.2 91 20 146/70 95 Room Air 06/16 2326 98.3 110 20 138/80 95 Room Air 06/16 2125 96 Room Air 06/16 1416 98.1 86 20 130/60 96 Room Air 06/16 0956 120/78 06/16 0954 Room Air Room Air 06/16 0954 94 Room Air Room Air 06/16 0800 Room Air Intake & Output 06/17 0800 06/17 0000 06/16 1600 Intake Total 240 400 850 Output Total Balance 240 400 850 Intake, IV 10 250 Intake, Oral 240 390 600 Number 0 Bowel Movements Physical Exam General Appearance: Alert, Oriented X3, Cooperative, No Acute Distress Skin: No Rashes, No Breakdown HEENT: Atraumatic, PERRLA, EOMI, Mucous Membr. moist/pink Neck: Supple, No JVD Lymphatic: Cervical nl Cardiovascular: Regular Rate, Normal S1, Normal S2 Lungs: Clear to Auscultation, Normal Air Movement Abdomen: Normal Bowel Sounds, Soft, No Tenderness Neurological: Normal Speech Extremities: No Edema, Normal Pulses Current Medications: Current Medications Sig/Hilda Start time Last Medication Dose Route Stop Time Status Admin Acetaminophen 650 MG Q6 06/15 1800 DC 06/16 PO 1156 Albuterol Sulfate 3 ML Q4P PRN 06/15 1445 AC INH Atorvastatin Calcium 10 MG 1700 06/15 1700 AC 06/16 PO 1626 Azithromycin 500 MG DAILY 06/16 1000 AC 06/16 Dextrose/Water 250 ML IV 0958 Ceftriaxone Sodium 1,000 MG DAILY 06/16 1000 AC 06/16 IV 0954 Enoxaparin Sodium 40 MG DAILY 06/16 1000 AC 06/16 SC 0956 Insulin Aspart 0 TIDAC 06/16 1700 AC 06/16 SC 1633 Insulin Aspart 0 TIDAC 06/15 1700 DC 06/16 SC 1156 Ketorolac 15 MG Q6P PRN 06/15 1445 AC Tromethamine IV 06/20 1444 Melatonin 5 MG ONCE ONE 06/17 0145 DC 06/17 PO 06/17 0146 0154 Metformin HCl 500 MG 0800,1700 06/16 0815 AC 06/16 PO 1626 Methylprednisolone 40 MG DAILY 06/16 1000 AC 06/16 IV 0954 Morphine Sulfate 2 MG Q6PRN PRN 06/15 1445 AC IV Patient Medication 1 ED .STK-MED ONE 06/16 1356 DC Teaching ED 06/16 1357 Valsartan 80 MG DAILY 06/16 1000 AC 06/16 PO 0956 Last 24 Hrs of Lab/Uriel Results Last 24 Hrs of Labs/Mics: Laboratory Tests 06/17/16 0736: CBC w Diff Pending, WBC Pending, RBC Pending, Hgb Pending, Hct Pending, MCV Pending, MCH Pending, RDW Pending, Plt Count Pending, MPV Pending, PUBS MCHC Pending Assessment/Plan Assessment: 61-year-old female with a past medical history of asthma, HTN, diabetes, hyperlipidemia, AML presents to the hospital complaining fevers, chills and shortness of breath along with cough and minimal sputum production for the past week. She failed outpatient treatment for pneumonia, and apparently desaturating the ER while ambulating to the restroom. Will change to oral abx today Doing well, on RA with O2 saturations >92% continue nebulizers, inhalers Will start prednisone taper Monitor sugars closely while taking steroids, with Accu-Cheks 394, 384, 259 NovoLog sliding scale adjusted, metformin started yesterday, continue to monitor sugars Monitor blood pressure, continue LILLY inhibitor Continue home dose of statin DVT prophylaxis Lovenox Heart healthy diet Full code IV line infiltated while before last IV dose of azithromycin could be administered. Pt does not want IV line placed again. Will provide last dose of azithromycin as po medication. Problem List: 1. Hypertension 2. Diabetes 3. PNA (pneumonia) Pain Ratin Pain Location: 0 Pain Goal: Remain pain free Pain Plan: no pain Tomorrow's Labs & Rationales: d/c today TOYA JOHNSON MD 06/17/16 1732: Attending MD Review Statement Attending Statement Attending MD Statement: examined this patient, discuss w/resident/PA/COATING MACHINE FEEDER, agreed w/resident/PA/COATING MACHINE FEEDER, reviewed EMR data (avail), discussed with nursing, amended to note Attending Assessment/Plan: The patient was seen and discussed with house staff. Agree with plan of care. OK to discharge to home today.
[2016-06-17 08:24] LABS: ABSOLUTE BASOPHIL COUNT 0 /CUMM (0.0-0.2); ABSOLUTE EOSINOPHIL COUNT 0.1 /CUMM (0.0-0.7); ABSOLUTE GRANULOCYTE CT 7.8 /CUMM (1.4-6.5); ABSOLUTE LYMPH COUNT 2.9 /CUMM (1.2-3.4); ABSOLUTE MONOCYTE COUNT 0.6 /CUMM (0.10-0.60); BASOPHIL % 0.2 % (0.0-2.0); EOSINOPHIL % 0.7 % (0-5); GRANULOCYTE % 68.7 % (42.2-75.2); HEMATOCRIT 36.7 % (37-47); MEAN CORPUSCULAR HGB 29.2 PG (27.0-31.0); MEAN CORPUSCULAR HGB CONC 33.2 G/DL (33.0-37.0); MEAN PLATELET VOLUME 8.8 FL (7.4-10.4); PLATELET COUNT 246 /CUMM (130-400); RBC DISTRIBUTION WIDTH 15.6 % (11.5-14.5); RED BLOOD CELL CT 4.16 /CUMM (4.20-5.40); WHITE BLOOD CELL COUNT 11.4 /CUMM (4.8-10.8)
[2016-06-17 09:48] VITALS: BP 150/80
[2016-06-17] MEDS ORDERED: AZITHROMYCIN500 M3 PO (09:50)
[2016-06-17] MEDS ORDERED: PREDNISONE10 M2 PO (09:52)
--- NOTE | 2016-06-17 09:59 | Patient Discharge Instructions ---
Discharge Instructions General Discharge Information You were seen/treated for: Pneumonia Special Instructions: Please avoid contact with enviornments that contain mold as this will exacerbate your symptoms. Please take medication as prescribed. While tapering medication if you experience trouble breathing please contact your lift slab operator, Dr. Joe or your PCP. Please take 3 tablets of prednisone on 06/18/16, 30mg Please take 2 tablets of prednisone on 06/19/16, 20mg Pleae take 1 tablet of prednisone on 06/20/13, 10mg and stop. Diet Continue normal diet: Yes Activity Full Activity/No Limits: Yes Acute Coronary Syndrome Inclusion Criteria At DC or during hospital stay patient has or had the following: ACS DIAGNOSIS No Discharge Core Measures Meds if any: Prescribed or Continued at Discharge Meds if any: NOT Prescribed or Continued at Discharge Congestive Heart Failure Inclusion Criteria At DC or during hospital stay patient has or had the following: CHF DIAGNOSIS No Discharge Core Measures Meds if any: Prescribed or Continued at Discharge Meds if any: NOT Prescribed or Continued at Discharge Cerebrovascular accident Inclusion Criteria At DC or during hospital stay patient has or had the following: CVA/TIA Diagnosis No Discharge Core Measures Meds if any: Prescribed or Continued at Discharge Meds if any: NOT Prescribed or Continued at Discharge Venous thromboembolism Inclusion Criteria VTE Diagnosis No VTE Type NONE VTE Confirmed by (Test) NONE Discharge Core Measures - Per Current guidelines, there needs to be overlap - treatment for the first 5 days of Warfarin therapy. - If discharged on Warfarin prior to 5 days of - overlap therapy, the patient will need to be - assessed for post discharge needs including - *Post discharge parental anticoagulation - *Warfarin and/or parental anticoagulation education - *Follow up date to check INR post discharge At least 5 days overlap therapy as Inpatient No Meds if any: Prescribed or Continued at Discharge Note: Overlap Therapy is Warfarin and Anticoagulant Meds if any: NOT Prescribed or Continued at Discharge
--- NOTE | 2016-06-17 10:10 | Discharge Summary ---
Visit Information Visit Dates Admission Date: 06/15/16 Discharge Date: 06/17/16 Hospital Course Course Attending Physician: TOYA JOHNSON MD Primary Care Physician: OTTO SANCHEZ,ADEBAYO Pelletier Hospital Course: 61-year-old female with a past medical history of asthma, HTN, diabetes, hyperlipidemia, AML presents to the hospital complaining of persistent shortness of breath along with cough with minimal sputum production for the past week. States that symptoms started on , she went to walk-in clinic, was seen by an outpatient learning and development associate prescribed Augmentin however symptoms have not improved. She was seen in the ER 2 days ago and was given Proventil inhaler, nebulizers, and steroids and discharged. She feel that her home environmnet and work enviornment may have contributed to her symptoms. 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 She was admitted to General Medicine and treated for community aquired pnuemonia. She initally required oxygen to maintain her oxygen saturations >92%. She was given IV steroids and nebulizer treatments along with IV antibotics. Her BP was monitored and controlled with home medications. Her Blood sugars were elevated, likely due to steroid use and insulin sliding scale adjusted to maintain sugars within range. She has been provided azithromycin to complete her course along with a quick steroid taper. She is asked to f/u with pulmonology, Dr. Joe and with her PCP upon discharge. She has been advised to avoid occupational chemical exposure as much as possible and to avoid mold that is in her home. Allergies: Coded Allergies: losartan (Intermediate, PATIENT COULD NOT TOLERATE COZAAR SWITCHED TO DIOVAN 05/03) Pertinent Lab Results: Laboratory Tests 06/17 06/16 0736 0705 Chemistry Sodium (137 - 145 mmol/L) 136 L Potassium (3.5 - 5.1 mmol/L) 4.7 Chloride (98 - 107 mmol/L) 100 Carbon Dioxide (22 - 30 mmol/L) 26 Anion Gap (5 - 16) 10 BUN (7 - 17 mg/dL) 21 H Creatinine (0.5 - 1.0 mg/dL) 0.8 Estimated GFR (>60 ml/min) > 60 BUN/Creatinine Ratio (7 - 25 %) 26.3 H Hematology CBC w Diff NO MAN DIFF REQ NO MAN DIFF REQ WBC (4.8 - 10.8 /CUMM) 11.4 H 14.0 H RBC (4.20 - 5.40 /CUMM) 4.16 L 4.00 L Hgb (12.0 - 16.0 G/DL) 12.2 11.8 L Hct (37 - 47 %) 36.7 L 34.8 L MCV (81.0 - 99.0 FL) 88.0 87.0 MCH (27.0 - 31.0 PG) 29.2 29.5 RDW (11.5 - 14.5 %) 15.6 H 15.8 H Plt Count (130 - 400 /CUMM) 246 243 MPV (7.4 - 10.4 FL) 8.8 8.8 Gran % (42.2 - 75.2 %) 68.7 76.6 H Lymphocytes % (20.5 - 51.1 %) 25.2 17.2 L Monocytes % (1.7 - 9.3 %) 5.2 5.9 Eosinophils % (0 - 5 %) 0.7 0.1 Basophils % (0.0 - 2.0 %) 0.2 0.2 Absolute Granulocytes (1.4 - 6.5 /CUMM) 7.8 H 10.7 H Absolute Lymphocytes (1.2 - 3.4 /CUMM) 2.9 2.4 Absolute Monocytes (0.10 - 0.60 /CUMM) 0.6 0.8 H Absolute Eosinophils (0.0 - 0.7 /CUMM) 0.1 0 Absolute Basophils (0.0 - 0.2 /CUMM) 0 0 PUBS MCHC (33.0 - 37.0 G/DL) 33.2 33.9 / 1128 Chemistry Sodium (137 - 145 mmol/L) 136 L Potassium (3.5 - 5.1 mmol/L) 5.2 H Chloride (98 - 107 mmol/L) 99 Carbon Dioxide (22 - 30 mmol/L) 25 Anion Gap (5 - 16) 13 BUN (7 - 17 mg/dL) 20 H Creatinine (0.5 - 1.0 mg/dL) 0.7 Estimated GFR (>60 ml/min) > 60 BUN/Creatinine Ratio (7 - 25 %) 28.6 H Glucose (65 - 99 mg/dL) 286 H Calcium (8.4 - 10.2 mg/dL) 9.8 Total Bilirubin (0.2 - 1.3 mg/dL) 0.8 AST (14 - 36 U/L) 30 ALT (9 - 52 U/L) 36 Alkaline Phosphatase (<127 U/L) 77 Troponin I (< 0.11 ng/ml) 0.06 Lnb-O-Crbjygbvssu Pept (<125 pg/mL) 2870 H Total Protein (6.3 - 8.2 g/dL) 7.5 Albumin (3.5 - 5.0 g/dL) 4.3 Globulin (1.9 - 4.2 gm/dL) 3.2 Albumin/Globulin Ratio (1.1 - 2.2 %) 1.3 Hematology CBC w Diff MAN DIFF ORDERED WBC (4.8 - 10.8 /CUMM) 14.3 H RBC (4.20 - 5.40 /CUMM) 4.25 Hgb (12.0 - 16.0 G/DL) 12.1 Hct (37 - 47 %) 36.6 L MCV (81.0 - 99.0 FL) 86.1 MCH (27.0 - 31.0 PG) 28.5 RDW (11.5 - 14.5 %) 15.9 H Plt Count (130 - 400 /CUMM) 288 MPV (7.4 - 10.4 FL) 8.5 Gran % (42.2 - 75.2 %) 85.3 H Lymphocytes % (20.5 - 51.1 %) 10.2 L Monocytes % (1.7 - 9.3 %) 4.4 Eosinophils % (0 - 5 %) 0 Basophils % (0.0 - 2.0 %) 0.1 Absolute Granulocytes (1.4 - 6.5 /CUMM) 12.2 H Absolute Lymphocytes (1.2 - 3.4 /CUMM) 1.5 Absolute Monocytes (0.10 - 0.60 /CUMM) 0.6 Absolute Eosinophils (0.0 - 0.7 /CUMM) 0 Absolute Basophils (0.0 - 0.2 /CUMM) 0 Platelet Estimate (ADEQUATE) VERIFIED BY SMEAR Anisocytosis 1+ PUBS MCHC (33.0 - 37.0 G/DL) 33.2 Vital Signs Date Time Temp Pulse Resp B/P Pulse O2 O2 Flow FiO2 Ox Delivery Rate 06/17 0837 93 Room Air 06/17 0600 98.2 91 20 146/70 95 Room Air 06/16 2326 98.3 110 20 138/80 95 Room Air 06/16 2125 96 Room Air 06/16 1416 98.1 86 20 130/60 96 Room Air Disposition Summary Disposition Principal Diagnosis: Pneumonia Additional Diagnosis: Diabetes Hypertension Discharge Disposition: home or self care Discharge Instructions General Discharge Information Code Status: Full Code Patient's Diet: Diabetic diet Patient's Activity: Independent diet Follow-Up Instructions/Appts: Please f/u with pcp in one week of discharge. Please f/u with pulmonology as outpatient. Medications at Discharge Discharge Medications: Stop taking the following medications: Amoxicillin/Clavulanate Potass (Amox-Clav 875-125 MG Tablet) 875 MG-125 MG TABLET ORAL TWICE DAILY Qty = 14 Continue taking these medications: Albuterol Sulfate (Albuterol Sulfate) 2.5 MG/3 ML VIAL.NEB 1 Vial Inhale Solution EVERY 4 HOURS NEEDED as needed for wheezing Qty = 50 Albuterol Sulfate (Ventolin Hfa) 90 MCG HFA.AER.AD 2 Puff Inhale through mouth EVERY 4-6 HOURS NEEDED as needed for WHEEZE Qty = 1 Insulin NPL/Insulin Lispro (Humalog Mix 75-25 Kwikpen) (Unknown Strength) INSULN.PEN Unknown Dose Inject into fatty tissue TWICE DAILY Qty = 30 Valsartan (Diovan) 80 MG TABLET 1 Tablet ORAL DAILY Comments: Last Taken: 06/17/16 Time: 1000 Metformin HCl (Metformin HCl ER) 500 MG TAB.ER.24H 1 Tablet ORAL TWICE DAILY Comments: Last Taken: 06/17/16 Time: 0800 Simvastatin (Simvastatin*) 20 MG TABLET 1 Tablet ORAL Every night Qty = 30 Comments: Last Taken: 06/16/16 Time: 1700 Start taking the following new medications: Azithromycin (Azithromycin) 500 MG TABLET 1 Tablet ORAL DAILY Qty = 4 No Refills Prednisone (Prednisone) 10 MG TABLET 1 Tablet ORAL DAILY Qty = 6 No Refills Instructions: PLEASE TAKE 3 TABLETS 06/18/16 PLEASE TAKE 2 TABLETS 06/19/16 PLEASE TAKE 1 TABLET 06/20/16 AND STOP Copies To: BRAD SANCHEZ,MAYNOR Avila; TOYA JOHNSON MD; OTTO SANCHEZ,ADEBAYO Pelletier Attending MD Review Statement Documenting Attending: TOYA JOHNSON MD Other Findings: The patient was seen and discussed with house staff. OK to discharge today to home. Agree with plan of care as outlined.
== END 2016-06-17 13:20 | DRG 193 ==
LOC: ENRESERVDT → ENRESERVTM → ERH 10:03 → ENPENDDIS 12:26 → ERHI 12:26 → 2NA 12:26
PROVIDERS: Physician Assistant Medical; Student in an Organized Health Care Education/Training Program; ADMIT Internal Medicine
DX: J18.9 Pneumonia, unspecified organism (principal); J96.01 Acute respiratory failure with hypoxia; C92.Z0 Other myeloid leukemia not having achieved remission; J45.909 Unspecified asthma, uncomplicated; I10 Essential (primary) hypertension; E11.9 Type 2 diabetes mellitus without complications; E78.5 Hyperlipidemia, unspecified; Z79.4 Long term (current) use of insulin; Z87.891 Personal history of nicotine dependence
CPT/HCPCS: 2NASP; 82436; 87040; 87070; 93005; 93010; 96374; 96375; J0456; J0696; J1650; J2920; J2930; J7060